=== PATIENT | male | born 1995 | race Two or more races ===

== ENCOUNTER 2025-02-02 18:56 | Emergency (ER) | payer BC, OTHER ==
[~2025-02-02] VITALS: Ht 170.2 cm; Wt 82.0 kg
[2025-02-02 20:00] VITALS: BP 145/73; PULSE 94; RESP 19; TEMP 98.8; O2SAT 97
[2025-02-02] MEDS: LIDOCAINE 1% HCL (LOCAL ANESTH.) INJ 20ML MDV ID ONE (20:00)
[2025-02-02] MEDS ORDERED: AUG875T PO (20:35)
--- NOTE | 2025-02-02 20:35 | ED.PDOC ---
HPI Comments THIS IS A 29-YEAR-OLD MALE PRESENTS TO THE ED STATUS POST DOG BITE. STATES HIS OWN DOG WHEN UP TO HIM AND BIT HIM IN THE TOP LIP PRIOR TO ARRIVAL. PATIENT COMPLAINING OF THE LIP LACERATION. NOTES DOGS VACCINES ARE UP-TO-DATE PATIENT NOTES THAT IMMUNIZATION TDAP IS UNKNOWN. DENIES NUMBNESS, WEAKNESS, FEVER, CHILLS, DIFFICULTY BREATHING OR SHORTNESS OF BREATH. 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 02/02/25 Information Source: Patient Mode of Arrival: Ambulatory Complexity: Complex Laceration Length (cm): 2 Past Medical History PAST MEDICAL HISTORY: Denies Surgical History: Denies all surgeries Family History Family History: Unknown Social History Smoker: Non-Smoker Alcohol: Denies ETOH Use Drugs: Denies Drug Use Constitutional: denies: chills, diaphoresis, fatigue, fever, malaise, sweats, weakness, others EENTM: denies: blurred vision, double vision, ear bleeding, ear discharge, ear drainage, ear pain, ear ringing, eye pain, eye redness, hearing loss, mouth pain, mouth swelling, nasal discharge, nose bleeding, nose congestion, nose pain, photophobia, tearing, throat pain, throat swelling, voice changes, others Respiratory: denies: cough, hemoptysis, orthopnea, SOB at rest, shortness of breath, SOB with excertion, stridor, wheezing, others Cardiovascular: denies: chest pain, dizzy spells, diaphoresis, Dyspnea on exertion, edema, irregular heart beat, left arm pain, lightheadedness, palpitations, PND, syncope, others Gastrointestinal: denies: abdomen distended, abdominal pain, blood streaked bowels, constipated, diarrhea, dysphagia, difficulty swallowing, hematemesis, melena, nausea, poor appetite, poor fluid intake, rectal bleeding, rectal pain, vomiting, others Genitourinary: denies: burning, dysuria, flank pain, frequency, hematuria, incontinence, penile discharge, penile sore, pain, testicle pain, testicle swelling, urgency, others Neurological: denies: dizziness, fainting, headache, left sided numbness, left sided weakness, numbness, paresthesia, pre-existing deficit, right sided numbness, right sided weakness, seizure, speech problems, tingling, tremors, weakness, others Musculoskeletal: denies: back pain, gout, joint pain, joint swelling, muscle pain, muscle stiffness, neck pain, others Integumetry: reports: laceration (LIP LACERATION MID TOP LIP); denies: bruises, change in color, change in hair/nails, dryness, lesions, lumps, rash, wounds, others Allergic/Immunocompromised: denies: Difficulty Healing, Frequent Infections, Hives, Itching, others Hematologic/Lymphatic: denies: anemia, blood clots, easy bleeding, easy bruising, swollen glands, others Endocrine: denies: excessive hunger, excessive sweating, excessive thirst, excessive urination, flushing, intolerance to cold, intolerance to heat, unexplained weight gain, unexplained weight loss, others Psychiatric: denies: anxiety, bipolar disorder, depression, hopeless, panic disorder, schizophrenia, sleepless, suicidal, others Physical Exam General Appearance: No Apparent Distress, Normal HEENT: Pharynx Normal, TMs Normal Neck: Full Range of Motion, Non-Tender Respiratory: Lungs Clear, No Respiratory Distress, Normal Breath Sounds Cardiovascular: No Edema, No JVD, No Murmur, No Gallop, Normal Peripheral Pulses, Regular Rate/Rhythm Breast Exam: Deferred Gastrointestinal: No Organomegaly, Non Tender, Soft Genitalia: Deferred Pelvic: Deferred Rectal: Deferred Extremities: Normal capillary refill, Normal inspection, Normal range of motion, Non-tender, No pedal edema Musculoskeletal : Apperance: Normal Neurologic: Alert, clip loading machine adjuster II-XII nml as Tested, No Motor Deficits, Normal Affect, Normal Mood, No Sensory Deficits Cerebellar Function: Normal Reflexes: Normal Skin: Dry, Lacerations (FULL-THICKNESS LIP LACERATION CROSSING THE MARGIN TOP LIP IN THE MIDDLE CROSSING THE VERMILION MARGIN NO NOTED OBVIOUS FOREIGN BODY BLEEDING CONTROLLED), Normal Color, Warm Lymphatic: No Adenopathy Was a procedure done? Was a procedure done?: Yes Sedation Sedation?: No Informed consent obtained: Yes Laceration Repair : Location UPPER LIP MIDDLE ASPECT Length 2 CM Anesthetic: Lidocaine, Without epi Laceration Repair: Number of sutures (5 ABSORBABLE SUTURES USED), Simple Informed consent obtained: Yes Notes PATIENT TOLERATED WELL WITH MINIMAL BLOOD LOSS MARGIN LINED UP Differential diagnosis Generic Laceration: Retained Foriegn Body, Tendon Injury, Avulsion X-Ray, Labs, Meds, VS Vital Signs Date Time Temp Pulse Resp B/P (MAP) Pulse Ox O2 Delivery O2 Flow Rate FiO2 02/02/25 20:00 94 19 97 Room Air 02/02/25 20:00 98.8 94 19 145/73 (97) 97 98.8 02/02/25 19:05 98.8 89 18 140/86 (104) 96 98.8 X-Ray, Labs, Meds, VS Comment SEE PROCEDURE NOTE. MEDICATIONS: TDAP SCRIPT AUGMENTIN, ADVISED TO TAKE MEDICATIONS PRESCRIBED SIDE EFFECTS D ISCUSSED. PATIENT REQUESTING DISCHARGE AT THIS TIME. ADVISED TO FOLLOW UP WITH HIS PCP IN 2 DAYS FOR WOUND RE-EVALUATION OR BACK HERE IN THE ER OR URGENT CARE. ADVISED ON ER RETURN PRECAUTIONS FOR SIGNS AND SYMPTOMS OF INFECTION OR UNCONTROLLABLE BLEEDING, NUMBNESS WEAKNESS OR ANY CONCERNS. IT IS UNDERSTANDING AGREES WITH DISCHARGE PLAN OF CARE. Time of 1ST Reevaluation: 20:33 Reevaluation 1ST: Improved Patient Education/Counseling: Diagnosis, Treatment, Prognosis, Need For Follow Up Family Education/Counseling: No Family Present Departure 1 Departure Time of Disposition: 20:33 Impression: Primary Impression: Laceration of lip without foreign body Qualified Codes: S01.511A - Laceration without foreign body of lip, initial encounter Disposition: HOME / SELF CARE / HOMELESS Condition: Stable e-Prescriptions Amoxicillin & Pot Clavulanate (AUGMENTIN TABLET) 875 Mg Tb 875 MG PO BID for 7 Days, #14 TAB Prov: MAIDA ARIAS 02/02/25 Discharged With: Self Critical Care Note Critical Care Time?: No Stability Stability form required: MAIDA Carrasco Feb 02, 2025 20:35
[2025-02-02] MEDS: TETANUS-DIPTH-ACEL PERTUSSIS 0.5ML SYR Tdap IM ONE (20:51)
== END 2025-02-02 20:57 | disposition home or self-care (01) ==
LOC: ER 18:56
DX: S01.511A Laceration without foreign body of lip, initial encounter (principal); W54.0XXA Bitten by dog, initial encounter; Y93.89 Activity, other specified; Y92.89 Other specified places as the place of occurrence of the external cause; Y99.8 Other external cause status
CPT/HCPCS: 12011; 90471; 90715; 99283; J2003